=== PATIENT | female | born 1990 | race Caucasian/White ===

== ENCOUNTER 2020-07-13 16:41 | Inpatient (IN) ==
[2020-07-13] MEDS ORDERED: Lactated Ringers 1000 ml BAG 1,000 ML IV ONE (17:08)
[2020-07-13] MEDS ORDERED: Lactated Ringers 1000 ml BAG 1,000 ML IV SCH (18:00)
[2020-07-13 18:42] LABS: Urine Benzodiazepine Screen None Detected (None Detect); Urine Cannabinoids Screen None Detected (None Detect); Urine Opiates Screen None Detected (None Detect)
[2020-07-14] MEDS ORDERED: Dibucaine 1% OINT 28.35 GM TUBE PR PRN (04:12)
[2020-07-14] MEDS ORDERED: Glycerin ADULT 2.4 gm SUPP PR PRN (04:12)
[2020-07-14] MEDS ORDERED: Oxytocin 10 UNITS/ML 1 ML VIAL IM ONE (04:12)
[2020-07-14] MEDS ORDERED: Witch Hazel PAD JAR TOPICAL PRN (04:12)
[2020-07-14] MEDS ORDERED: Lactated Ringers 1000 ml BAG 1,000 ML IV SCH (05:00)
[2020-07-14] MEDS ORDERED: Lidocaine 1% VIAL 10 MG/ML VIAL ONE (06:49)
[2020-07-15 08:49] LABS: ABS Lymphocytes 3.1 10^3/ul (1.0-4.8); ABS Monocytes 0.5 10^3/ul (0-0.8); ABS Neutrophils 8.2 10^3/ul (1.5-7.7); Eosinophil % 0.1 %; Hematocrit 31 % (35-47); Hemoglobin 10.4 g/dL (12.0-16.0); Lymphocyte % 26.2 %; Mean Corpuscular HGB Conc 34 g/dL (31-36); Mean Corpuscular Hemoglobin 32 pg (27-31); Mean Corpuscular Volume 96 fL (80-97); Mean Platelet Volume 9.1 fL (7.4-10.4); Nucleated Red Blood Cells % 0.1; Platelet Count 213 10^3/uL (150-450); Red Blood Count 3.21 10^6 /uL (3.70-4.87); Red Cell Distribution Width 14 % (10-15); White Blood Count 11.9 10^3/uL (3.5-10.8)
[2020-07-16 08:02] VITALS: BP 124/71
[2020-07-16] MEDS ORDERED: Varicella Virus Vaccine Live 0.5 ML VIAL SUBCUT ONE (09:57)
== END 2020-07-16 15:40 | disposition home or self-care (01) | DRG 807 ==
LOC: MCHOBOUT 16:41 → MCHNUR 16:51 → MCHOB 07-14 06:28
PROVIDERS: ADMIT Midwife; ATTEND Midwife